=== PATIENT | female | born 1960 | race Caucasian/White ===

== ENCOUNTER 2016-09-05 10:04 | Inpatient (IN) | payer OTHER ==
[2016-09-05] VITALS (7 sets, daily range): BP systolic 108–139; BP diastolic 57–70; PULSE 55–77; RESP 12–21; TEMP 98–99.2; O2SAT 97–100
[~2016-09-05] VITALS: Ht 162.6 cm; Wt 50.0 kg
[2016-09-05] MEDS ORDERED: OMEP10CA PO (10:32)
[2016-09-05] MEDS ORDERED: SODIUM CHLOR 0.9% 1000 ML INJ 1,000 ML IV SCH (10:32)
--- NOTE | 2016-09-05 10:34 | PD ---
HPI Chief Complaint: GI Complaint Time Seen by Provider: 10:19 Travel History International Travel<30 days: No Contact w/Intl Traveler<30days: No Traveled to known affect area: No History of Present Illness HPI This is a 56-year-old female who presents to the emergency department with nausea vomiting and diarrhea that's been going on for 10 days. She's says she' s been having 5-6 loose stools per day with some intermittently formed stools. Her last bowel movement was immediately prior to arrival. She also yesterday started to have vomiting. This morning she was dry heaving and doesn't have anything left in her stomach. She denies any fevers or chills. She went to the [facility] where they told her she might have a heart problem because she is having some jaw pain that she thinks is related to her TMJ. She denies any fevers or chills. She has had abdominal cramping which she thinks is related to her vomiting. She says a lot of people at work had been sick with similar symptoms. She has a complicated abdominal history and when she was in her 30s had a bowel perforation during a laparoscopic surgery for endometriosis which went undiagnosed put her in a coma. She ended up with an ileostomy which has since been reversed. PFSH Past Medical History Medical other: Yes (vertigo) Reproductive: Yes (endometriosis ) Respiratory: Yes (lungs trice out in the past) ?: Not Past Surgical History Genitourinary Surgery: Yes (ileostomy and reversal, knicked bowel, mesh implant ) Social History Alcohol Use: No Tobacco Use: No Substance Use: No Allergies-Medications (Allergen,Severity, Reaction): Coded Allergies: Penicillin (Verified Allergy, Intermediate, itchy, 09/05/16) Reported Meds & Prescriptions Reported Meds & Active Scripts Active Reported Omeprazole 10 Mg Cap 10 Mg PO DAILY Review of Systems Except as stated in HPI: all other systems reviewed are Neg Physical Exam Narrative GENERAL:Well appearing, no acute distress SKIN: Focused skin assessment warm and dry. HEAD: Atraumatic. Normocephalic. EYES: Pupils equal and round. No injection or drainage. ENT: Dry mucous membranes. NECK: Trachea midline. CARDIOVASCULAR: Regular rate and rhythm. No murmur appreciated. RESPIRATORY: Clear to auscultation. Breath sounds equal bilaterally. GASTROINTESTINAL: Abdomen soft, tender to palpation in the lower abdomen with no rebound or guarding. Bowel sounds in all 4 quadrants. MUSCULOSKELETAL: No obvious deformities. NEUROLOGICAL: Awake and alert. No obvious cranial nerve deficits. Moving all extremities. PSYCHIATRIC: Appropriate mood and affect; insight and judgment normal. Data Data Last Documented VS Vital Signs Date Time Temp Pulse Resp B/P Pulse Ox O2 Delivery O2 Flow Rate FiO2 09/05/16 12:56 98.0 55 14 110/58 99 09/05/16 10:33 Room Air Orders Complete Blood Count With Diff (09/05/16 10:32) Comprehensive Metabolic Panel (09/05/16 10:32) Iv Access Insert/Monitor (09/05/16 10:32) Ecg Monitoring (09/05/16 10:32) Oximetry (09/05/16 10:32) Ondansetron Inj (Zofran Inj) (09/05/16 10:45) Sodium Chlor 0.9% 1000 Ml Inj (Ns 1000 M (09/05/16 10:32) Sodium Chloride 0.9% Flush (Ns Flush) (09/05/16 10:45) Electrocardiogram (09/05/16 10:32) Troponin I (09/05/16 10:32) Ct Abd/Pel W Iv Contrast(Rout) (09/05/16 ) Iohexol 350 Inj (Omnipaque 350 Inj) (09/05/16 12:31) Admit Order (Ed Use Only) (09/05/16 13:15) Labs Laboratory Tests Test 09/05/16 10:41 White Blood Count 10.5 TH/MM3 Red Blood Count 3.86 MIL/MM3 Hemoglobin 12.5 GM/DL Hematocrit 36.0 % Mean Corpuscular Volume 93.4 FL Mean Corpuscular Hemoglobin 32.5 PG Mean Corpuscular Hemoglobin 34.8 % Concent Red Cell Distribution Width 13.2 % Platelet Count 245 TH/MM3 Mean Platelet Volume 6.9 FL Neutrophils (%) (Auto) 77.5 % Lymphocytes (%) (Auto) 17.7 % Monocytes (%) (Auto) 4.3 % Eosinophils (%) (Auto) 0.1 % Basophils (%) (Auto) 0.4 % Neutrophils # (Auto) 8.1 TH/MM3 Lymphocytes # (Auto) 1.9 TH/MM3 Monocytes # (Auto) 0.5 TH/MM3 Eosinophils # (Auto) 0.0 TH/MM3 Basophils # (Auto) 0.0 TH/MM3 CBC Comment DIFF FINAL Differential Comment Sodium Level 143 MEQ/L Potassium Level 3.6 MEQ/L Chloride Level 106 MEQ/L Carbon Dioxide Level 27.8 MEQ/L Anion Gap 9 MEQ/L Blood Urea Nitrogen 19 MG/DL Creatinine 0.89 MG/DL Estimat Glomerular Filtration 66 ML/MIN Rate Random Glucose 118 MG/DL Calcium Level 8.9 MG/DL Total Bilirubin 0.4 MG/DL Aspartate Amino Transf 13 U/L (AST/SGOT) Alanine Aminotransferase 21 U/L (ALT/SGPT) Alkaline Phosphatase 58 U/L Troponin I LESS THAN 0.02 NG/ML Total Protein 7.4 GM/DL Albumin 4.1 GM/DL [facility] Medical Decision Making Medical Screen Exam Complete: Yes Emergency Medical Condition: Yes Interpretation(s) Afebrile, no tachycardia, normotensive No leukocytosis Electrolytes are reassuring Troponin is normal CT: Dilated loop of fluid-filled small bowel in the right lower quadrant proximal to anastomotic sutures suggesting focal small bowel obstruction Differential Diagnosis Small bowel obstruction, gastroenteritis, dehydration, colitis, appendicitis Narrative Course This is a 56-year-old female who presents to the emergency department with nausea, vomiting and loose stools as well as abdominal discomfort. She has had multiple abdominal surgeries in the past. She is placed on a monitor and an IV was established. Labs were obtained which were all reassuring. CT abdomen and pelvis demonstrates focal distention of the small bowel loop that her anastomosis concerning for possible obstruction. I spoke to Dr. Gardiner who was on-call for general surgery. Given the patient is not actively vomiting and is passing some stool it's unlikely that she has a complete obstruction. He agreed to defer nasogastric tube at this time and will see the patient later in consultation. Physician Communication Physician Communication Discussed with Dr. Gardiner and Dr. Salazar Diagnosis Primary Impression: Small bowel obstruction Admitting Information Admitting Physician Requests: Admit Brea Elmore MD Sep 05, 2016 10:34
[2016-09-05] MEDS ORDERED: SODIUM CHLORIDE 0.9% FLUSH 10 ML FLUSH IV FLUSH PRN ×2 (10:45→15:45)
[2016-09-05] MEDS ORDERED: ONDANSETRON HCL 4 MG/2 ML VIAL IVP ONE (10:45)
[2016-09-05 11:06] LABS: AUTOMATED NEUTROPHIL # 8.1 TH/MM3 (1.8-7.7); BASOPHIL % 0.4 % (0.0-2.0); EOSINOPHIL % 0.1 % (0.0-4.0); HEMO FLAGS DIFF FINAL; LYMPH % 17.7 % (9.0-44.0); LYMPHOCYTE # 1.9 TH/MM3 (1.0-4.8); MEAN CELL VOLUME 93.4 FL (80.0-100.0); MEAN CORPUSCULAR HEMOGLOBIN 32.5 PG (27.0-34.0); MEAN CORPUSCULAR HGB CONC 34.8 % (32.0-36.0); MONO % 4.3 % (0.0-8.0); NEUT % 77.5 % (16.0-70.0); PLATELET COUNT 245 TH/MM3 (150-450); RED BLOOD COUNT 3.86 MIL/MM3 (4.00-5.30); RED CELL DISTRIBUTION WIDTH 13.2 % (11.6-17.2); WHITE BLOOD COUNT 10.5 TH/MM3 (4.0-11.0)
[2016-09-05 11:22] LABS: ALT (GPT) 21 U/L (10-53); ANION GAP 9 MEQ/L (5-15); AST (GOT) 13 U/L (15-37); BICARBONATE 27.8 MEQ/L (21.0-32.0); BLOOD UREA NITROGEN 19 MG/DL (7-18); CHLORIDE 106 MEQ/L (98-107); GLOMERULAR FILTRATION RATE 66 ML/MIN (>89); POTASSIUM 3.6 MEQ/L (3.5-5.1); SODIUM (NA) 143 MEQ/L (136-145)
[2016-09-05 11:25] LABS: ALKALINE PHOSPHATASE 58 U/L (45-117); TOTAL BILIRUBIN ADULT 0.4 MG/DL (0.2-1.0)
[2016-09-05] MEDS ORDERED: IOHEXOL 350 MG/ML 10 ML VIAL (for RAD DIAG) IV ONE (12:31)
--- NOTE | 2016-09-05 13:09 | RADRPT ---
EXAM DATE/TIME: 09/05/2016 12:19 [place] COMPARISON: No previous studies available for comparison. INDICATIONS : Abdominal pain, nausea and vomiting for 8 days. IV CONTRAST: 94 cc Omnipaque 350 (iohexol) IV ORAL CONTRAST: No oral contrast ingested. RADIATION DOSE: 4.50 CTDIvol (mGy) MEDICAL HISTORY : Hernia, hiatal. Endometriosis SURGICAL HISTORY : Ileostomy & reversal. Mesh implant. ENCOUNTER: Initial ACUITY: 1 day PAIN SCALE: 3/10 LOCATION: Bilateral lower quadrant TECHNIQUE: Volumetric scanning of the abdomen and pelvis was performed. Using automated exposure control and ad justment of the mA and/or kV according to patient size, radiation dose was kept as low as reasonably achievable to obtain optimal diagnostic quality images. FINDINGS: There is evidence of a fluid-filled dilated loop of small bowel within the right lower quadrant immed iately proximal to what appears to be an anastomosis consistent with probable small bowel obstruction at the anastomosis. Clinical correlation is recommended. There is a calcification within the dilat ed loop of small bowel which may represent a gallstone. The liver is enlarged but demonstrates no focal mass or biliary ductal dilatation. The gallbladder i s normal in appearance. The spleen is normal. The pancreas is also normal. The adrenal glands are normal bilaterally. The kidneys enhance briskly and demonstrate no evidence of hydronephrosis or svitlana cified stone. There is a simple cyst within the right kidney measuring 7 mm. The urinary bladder is unremarkable. The uterus is unremarkable. Minimal ascites is noted within the pelvis. No lymphade nopathy is noted. The abdominal aorta demonstrates calcified atherosclerotic plaque but no aneurysma l dilatation. The inferior vena cava is normal. Scattered fibrotic scarring is noted within the tashia g bases. Degenerative changes are noted throughout the lumbar spine. CONCLUSION: 1. Dilated loop of fluid-filled small bowel within the right lower quadrant proximal to anastomotic sutures suggesting focal small bowel obstruction at the anastomosis. There is a calcification within the dilated fluid-filled loop suggestive of possible gallstone. 2. Minimal ascites within the pelvis. 3. Tiny right renal cyst measuring 7 mm. 4. Hepatomegaly. Bird Garcia MD on September 05, 2016 at 12:55 Board Certified Radiologist. This report was verified electronically.
--- NOTE | 2016-09-05 14:31 | EKG ---
Date Performed: 09/05/2016 Time Performed: 10:38:03 PTAGE: 56 years EKG: Sinus rhythm POSSIBLE RIGHT VENTRICULAR CONDUCTION DELAY BORDERLINE ECG INTERPRETATION BASED ON A DEFAULT AGE OF 40 YEARS NO PREVIOUS TRACING DOCTOR: Lobo Hill Interpretating Date/Time 09/05/2016 14:31:21
[2016-09-05] MEDS ORDERED: ONDANSETRON HCL 4 MG/2 ML VIAL IVP PRN (15:45)
[2016-09-05] MEDS ORDERED: NALOXONE HCL 0.4 MG/ML AMP IV PRN (15:45)
--- NOTE | 2016-09-05 15:46 | HHI.HP ---
[facility] Service [facility] Primary Care Physician [facility] Admission Diagnosis small bowel obstruction Diagnoses: Chief Complaint: Abdominal pain and emesis. Travel History International Travel<30 Days: No Contact w/Intl Traveler <30 Da: No Traveled to Known Affected Are: No History of Present Illness This is a 56-year-old female who had a past medical history involving multiple abdominal surgery including bowel perforation during a laparoscopic surgery for endometriosis in which she needed a ileostomy which was reversed who presented with abdominal pain and emesis. Patient stated that at 10 PM last night she had abdominal pain and emesis multiple times until 4 AM when it stop. She stated that it looked like it was food but it was dark in her house and at night so she couldn't really say. Deny any fevers or chills. She also stated that she had diarrhea for the past 8 days. Diarrhea described as loose but then becomes watery. She feels like this has worsened. At the moment she stated that abdominal pain and emesis has resolved. Review of Systems Constitutional: DENIES: Diaphoretic episodes, Fatigue, Fever, Weight gain, Weight loss, Chills, Dizziness, Change in appetite, Night Sweats Endocrine: DENIES: Abnorml menstrual pattern, Heat/cold intolerance, Polydipsia , Polyuria, Polyphagia Eyes: DENIES: Blurred vision, Diplopia, Eye inflammation, Eye pain, Vision loss , Photosensitivity, Double Vision Ears, nose, mouth, throat: DENIES: Tinnitus, Hearing loss, Vertigo, Nasal discharge, Oral lesions, Throat pain, Hoarseness, Ear Pain, Running Nose, Epistaxis, Sinus Pain, Toothache, Odynophagia Respiratory: DENIES: Apneas, Cough, Snoring, Wheezing, Hemoptysis, Sputum production, Shortness of breath Cardiovascular: DENIES: Chest pain, Palpitations, Syncope, Dyspnea on Exertion , PND, Lower Extremity Edema, Orthopnea, Claudication Gastrointestinal: COMPLAINS OF: Diarrhea, DENIES: Abdominal pain, Black stools , Bloody stools, Constipation, Nausea, Vomiting, Difficulty Swallowing, Anorexia Genitourinary: DENIES: Abnormal vaginal bleeding, Dysmenorrhea, Dyspareunia, Sexual dysfunction, Urinary frequency, Urinary incontinence, Urgency, Hematuria , Dysuria, Nocturia, Vaginal discharge Musculoskeletal: DENIES: Joint pain, Muscle aches, Stiffness, Joint Swelling, Back pain, Neck pain Integumentary: DENIES: Abnormal pigmentation, Pruritus, Rash, Nail changes, Breast masses, Breast skin changes, Nipple discharge Hematologic/lymphatic: DENIES: Bruising, Lymphadenopathy Immunologic/allergic: DENIES: Eczema, Urticaria Neurologic: DENIES: Abnormal gait, Headache, Localized weakness, Paresthesias, Seizures, Speech Problems, Tremor, Poor Balance Psychiatric: DENIES: Anxiety, Confusion, Mood changes, Depression, Hallucinations, Agitation, Suicidal Ideation, Homicidal Ideation, Delusions Past Family Social History Past Medical History History DVT Endometriosis Past Surgical History Exploratory laparotomy that resulted in bowel perforation status post ileostomy placement and takedown Hernia repair bunionectomy Reported Medications Reported Meds & Active Scripts Active Reported Omeprazole 10 Mg Cap 10 Mg PO DAILY Allergies: Coded Allergies: Penicillin (Verified Allergy, Intermediate, itchy, 09/05/16) Active Ordered Medications Current Medications Ondansetron HCl 4 mg 4 mg ONCE ONCE IVP Last administered on 09/05/16 10:40; Start 09/05/16 at 10:45; Stop 09/05/16 at 10:46; Status DC Sodium Chloride (NS 1000 ml Inj) 1,000 ml @ 1,000 mls/hr Q1H IV Last administered on 09/05/16 10:40; Start 09/05/16 at 10:32; Stop 09/05/16 at 11:31 ; Status DC Sodium Chloride (NS Flush) 2 ml UNSCH PRN IV FLUSH FLUSH AFTER USING IV ACCESS ; Start 09/05/16 at 10:45; Stop 09/05/16 at 15:40; Status DC Iohexol 94 ml 94 ml STK-MED ONCE IV Last administered on 09/05/16 12:31; Start 09/05/16 at 12:31; Stop 09/05/16 at 12:32; Status DC Sodium Chloride (NS 1000 ml Inj) 1,000 ml @ 125 mls/hr Q8H IV ; Start 09/05/16 at 16:00 Sodium Chloride (NS Flush) 2 ml UNSCH PRN IV FLUSH FLUSH AFTER USING IV ACCESS ; Start 09/05/16 at 15:45 Sodium Chloride (NS Flush) 2 ml BID IV FLUSH ; Start 09/05/16 at 21:00 Ondansetron HCl (Zofran Inj) 4 mg Q6H PRN IVP NAUSEA OR VOMITING; Start at 15:45 Naloxone HCl (Narcan Inj) 0.4 mg UNSCH PRN IV SEE LABEL COMMENTS; Start at 15:45 Family History Mother has a history of MS. Father has history of blood clots. Social History Denying tobacco illicit drug use. Drinks a couple beers at night. Physical Exam Vital Signs Vital Signs Date Time Temp Pulse Resp B/P Pulse Ox O2 Delivery O2 Flow Rate FiO2 09/05/16 14:50 69 16 108/70 98 09/05/16 12:56 98.0 55 14 110/58 99 09/05/16 10:33 100 Room Air 09/05/16 10:24 17 09/05/16 10:06 99.2 75 12 112/57 99 Physical Exam GENERAL: This is a well-nourished, well-developed patient, in no apparent distress. SKIN: No rashes, ecchymoses or lesions. Cool and dry. HEAD: Atraumatic. Normocephalic. No temporal or scalp tenderness. EYES: Pupils equal round and reactive. Extraocular motions intact. No scleral icterus. No injection or drainage. ENT: Nose without bleeding, purulent drainage or septal hematoma. Throat without erythema, tonsillar hypertrophy or exudate. Uvula midline. Airway patent. NECK: Trachea midline. No JVD or lymphadenopathy. Supple, nontender, no meningeal signs. CARDIOVASCULAR: Regular rate and rhythm without murmurs, gallops, or rubs. RESPIRATORY: Clear to auscultation. Breath sounds equal bilaterally. No wheezes , rales, or rhonchi. GASTROINTESTINAL: Abdomen soft, non-tender, nondistended. No hepato-splenomegaly , or palpable masses. No guarding. MUSCULOSKELETAL: Extremities without clubbing, cyanosis, or edema. No joint tenderness, effusion, or edema noted. No calf tenderness. Negative Homans sign bilaterally. NEUROLOGICAL: Awake and alert. Cranial nerves II through XII intact. Motor and sensory grossly within normal limits. Five out of 5 muscle strength in all muscle groups. Normal speech. Laboratory Laboratory Tests Test 09/05/16 10:41 White Blood Count 10.5 Red Blood Count 3.86 Hemoglobin 12.5 Hematocrit 36.0 Mean Corpuscular Volume 93.4 Mean Corpuscular Hemoglobin 32.5 Mean Corpuscular Hemoglobin 34.8 Concent Red Cell Distribution Width 13.2 Platelet Count 245 Mean Platelet Volume 6.9 Neutrophils (%) (Auto) 77.5 Lymphocytes (%) (Auto) 17.7 Monocytes (%) (Auto) 4.3 Eosinophils (%) (Auto) 0.1 Basophils (%) (Auto) 0.4 Neutrophils # (Auto) 8.1 Lymphocytes # (Auto) 1.9 Monocytes # (Auto) 0.5 Eosinophils # (Auto) 0.0 Basophils # (Auto) 0.0 CBC Comment DIFF FINAL Differential Comment Sodium Level 143 Potassium Level 3.6 Chloride Level 106 Carbon Dioxide Level 27.8 Anion Gap 9 Blood Urea Nitrogen 19 Creatinine 0.89 Estimat Glomerular Filtration 66 Rate Random Glucose 118 Calcium Level 8.9 Total Bilirubin 0.4 Aspartate Amino Transf 13 (AST/SGOT) Alanine Aminotransferase 21 (ALT/SGPT) Alkaline Phosphatase 58 Troponin I LESS THAN 0.02 Total Protein 7.4 Albumin 4.1 Result Diagram: 09/05/16 1041 09/05/16 1041 Assessment and Plan Assessment and Plan 56-year-old female with past medical history of multiple abdominal surgeries who presented with abdominal pain and emesis Small bowel obstruction -CT scan shows a focal small bowel obstruction. -General surgeon was consulted by ED physician in which at the moment he does not recommend NG tube placement. -Continue with supportive care with IV fluids and anti-emetics pending general surgeons consultation. Diarrhea -Will get stool studies. Maybe secondary to small bowel obstruction. -We'll start probiotics. DVT prophylaxis -SCDs. Code Status full Discussed Condition With patient Physician Certification 2 Midnight Certification Type: Admission for Inpatient Services Order for Inpatient Services The services are ordered in accordance with Medicare regulations or non- Medicare payer requirements, as applicable. In the case of services not specified as inpatient-only, they are appropriately provided as inpatient services in accordance with the 2-midnight benchmark. Estimated LOS (days): 2 2 days is the estimated time the patient will need to remain in the hospital, assuming treatment plan goals are met and no additional complications. Post-Hospital Plan: Mikki Ibarra MD Sep 05, 2016 15:45
[2016-09-05] MEDS: SODIUM CHLOR 0.9% 1000 ML INJ 1,000 ML IV SCH (15:54)
[2016-09-05] MEDS: SODIUM CHLORIDE 0.9% FLUSH 10 ML FLUSH IV FLUSH SCH (19:40)
[2016-09-05] MEDS: LACTOBACILLUS ACIDOPHILUS TAB PO SCH (19:58)
[2016-09-06] VITALS: BP 111/56; PULSE 53; RESP 19; TEMP 98; O2SAT 95
[2016-09-06] MEDS: SODIUM CHLOR 0.9% 1000 ML INJ 1,000 ML IV SCH ×2 (00:34→08:00)
[2016-09-06 04:00] VITALS: BP 134/81; PULSE 74; RESP 19; TEMP 97.9; O2SAT 100
--- NOTE | 2016-09-06 06:31 | MB ---
cc: SHAYYCINDY DATE OF EVALUATION 09/05/[address] Mikki Salazar REASON FOR CONSULTATION Small bowel obstruction. HISTORY OF PRESENT ILLNESS The patient is a 56-year-old female with a complex past surgical history who presented to [facility] with nausea, vomiting and abdominal pain. The patient underwent surgery for endometriosis over 10 years ago which was complicated by bowel injury which required multiple abdominal surgeries, ileostomy, ileostomy reversal, mesh placement for hernia as well as mesh removal. The patient has since that time experienced recurrent partial bowel obstruction-type symptoms that are usually treated outside hospital admission. These are similar to this episode when she has onset of crampy abdominal pain, sometimes related to large bulk fiber foods like vegetables and nuts. The patient denies any previous surgery or every admission with NG tube. The patient states this episode is worse than her previous episodes which prompted the hospital visit. The patient was found on imaging CT scan of the pelvis to have a dilated loop of fluid-filled small bowel in the right lower quadrant proximal to the anastomotic strictures concerning for a possible partial obstruction. The patient laboratory values are within normal limits and is felt to have a benign abdominal exam. The patient was admitted for observation and for abdominal surgery consultation. The patient states over the last several hours she has had bowel movements, passed gas and resolution of her pain. REVIEW OF SYSTEMS A 12-point review of systems was done with the patient and is negative except for the pertinent positives mentioned above in the History of Present Illness. PAST MEDICAL HISTORY 1. History of DVT. 2. Endometriosis. PAST SURGICAL HISTORY 1. Exploratory laparotomy, ileostomy placement. 2. Ileostomy takedown and hernia repair. 3. Mesh removal. 4. Bunionectomy. ALLERGIES PENICILLIN MEDICATIONS Omeprazole. FAMILY HISTORY Noncontributory. SOCIAL HISTORY History of tobacco use. Currently does not use tobacco, occasionally drinks alcohol. Denies illicit drug use. Works as a radio DJ. PHYSICAL EXAMINATION VITAL SIGNS: Temperature 98.0 degrees, pulse 55, respiratory rate 14, blood pressure 110/58. GENERAL: The patient is a thin female in no acute distress. HEENT: Head is normocephalic, atraumatic. Pupils round, reactive to accommodation and to light. Sclerae anicteric. Mucous membranes are moist. NECK: Supple with no JVD. SKIN: Warm, dry, intact. LUNGS: Clear to auscultation bilaterally. Nonlabored breathing pattern. HEART: Regular rate and rhythm. No murmurs. ABDOMEN: Soft, nondistended. Normal bowel sounds. Multiple surgical scars. No hernias. No rebound tenderness. No peritonitis. BACK: No CVA tenderness. EXTREMITIES: No clubbing, cyanosis or edema. NEUROLOGIC EXAM: The patient is awake, alert appropriate and oriented x 4, moving all extremities equally, nonfocally. Cranial nerves II-XII grossly intact. LABORATORY VALUES Within normal limits. Unremarkable. ASSESSMENT AND PLAN The patient is a 56-year-old female with recurrent low-grade partial bowel obstruction, possibly related to previous surgery with abdominal adhesions or less likely/possibly area of anastomosis or partial stricture of the anastomosis. I did discuss these findings with her and her diagnosis. In the short-term since the patient seems to have resolving bowel obstruction, recommend advance to clear liquid diet and if the patient is able tolerate a full liquid diet, will discharge home in the next 24 hours. Long-term I discussed the options with the patient including a diet with no bulk fiber or puree any bulk fiber items. She understands the rationale for this and has agreed to try this diet to limit these episodes and obstruction. Also discussed surgical options with the patient, emergent as well as elective. The patient would like to avoid surgical attention but states she would consider it if nonoperative therapy fails. We will follow the patient. Thank you very much for this consultation. We will advance the patient to a clear liquid diet. MD EULALIO Linda/DARIA /10:15 PM /6:16 AM
[2016-09-06 07:27] VITALS: BP 110/64; PULSE 60; RESP 16; TEMP 98.3; O2SAT 99
[2016-09-06] MEDS: LACTOBACILLUS ACIDOPHILUS TAB PO SCH (08:48)
[2016-09-06] MEDS: SODIUM CHLORIDE 0.9% FLUSH 10 ML FLUSH IV FLUSH SCH (09:00)
--- NOTE | 2016-09-06 09:38 | HHI.DCPOC ---
Discharge Care Plan Diagnosis: (1) Small bowel obstruction Goals to Promote Your Health * To prevent worsening of your condition and complications * To maintain your health at the optimal level Directions to Meet Your Goals Take your medications as prescribed Follow your dietary instruction Follow activity as directed Keep your appointments as scheduled Take your immunizations and boosters as scheduled If your symptoms worsen call your PCP, if no PCP go to Urgent Care Center or Emergency Room Smoking is Dangerous to Your Health. Avoid second hand smoke Call the 24-hour hour crisis hotline for domestic abuse at Mikki Salazar MD Sep 06, 2016 09:38
--- NOTE | 2016-09-06 09:41 | HHI.DS ---
Discharge Summary Admission Date Sep 05, 2016 at 13:16 Discharge Date: Sep 06, 2016 Admitting Diagnosis small bowel obstruction (1) Small bowel obstruction ICD Code: K56.69 Diagnosis: Principal Procedures none Brief History - From Admission This is a 56-year-old female who had a past medical history involving multiple abdominal surgery including bowel perforation during a laparoscopic surgery for endometriosis in which she needed a ileostomy which was reversed who presented with abdominal pain and emesis. Patient stated that at 10 PM last night she had abdominal pain and emesis multiple times until 4 AM when it stop. She stated that it looked like it was food but it was dark in her house and at night so she couldn't really say. Deny any fevers or chills. She also stated that she had diarrhea for the past 8 days. Diarrhea described as loose but then becomes watery. She feels like this has worsened. At the moment she stated that abdominal pain and emesis has resolved. CBC/BMP: 09/05/16 1041 09/05/16 1041 Significant Findings Laboratory Tests Test 09/05/16 10:41 Red Blood Count 3.86 MIL/MM3 (4.00-5.30) Mean Platelet Volume 6.9 FL (7.0-11.0) Neutrophils (%) (Auto) 77.5 % (16.0-70.0) Neutrophils # (Auto) 8.1 TH/MM3 (1.8-7.7) Blood Urea Nitrogen 19 MG/DL (7-18) Estimat Glomerular Filtration 66 ML/MIN (>89) Rate Random Glucose 118 MG/DL (74-106) Aspartate Amino Transf 13 U/L (15-37) (AST/SGOT) Troponin I LESS THAN 0.02 NG/ML (0.02-0.05) Imaging Last Impressions Abdomen/Pelvis CT 09/05/16 0000 Signed Impressions: Service Date/Time: Monday, September 05, 2016 12:19 - CONCLUSION: 1. Dilated loop of fluid-filled small bowel within the right lower quadrant proximal to anastomotic sutures suggesting focal small bowel obstruction at the anastomosis. There is a calcification within the dilated fluid-filled loop suggestive of possible gallstone. 2. Minimal ascites within the pelvis. 3. Tiny right renal cyst measuring 7 mm. 4. Hepatomegaly. Bird Garcia MD PE at Discharge gen NAD CV RRR. no r/m/g Resp CTA B/L abd soft NDNT. no peritoneal signs. normoactive BS. Pt update on day of discharge f/u for SBO denied any N/V or abdominal pain. patient stated she is tolerating diet and asking to go home. dw her over the phone. Hospital Course 56-year-old female with past medical history of multiple abdominal surgeries who presented with abdominal pain and emesis Small bowel obstruction -CT scan shows a focal small bowel obstruction. -General surgeon was consulted by ED physician in which at the moment he does not recommend NG tube placement. -patient given supportive care with IV fluids and anti-emetics. -GS saw patient and recommend to avoid bulking agent. -patient pain resolved and tolerated diet so was discharge home. Diarrhea -no diarrhea noted in hospital so could not obtained stool studies. -maybe due to SBO Pt Condition on Discharge: Good Discharge Disposition: Discharge Home Discharge Time: <= 30 minutes Discharge Instructions DIET: Follow Instructions for: As Tolerated, No Restrictions, Low Fiber Diet Additional Diet Instructions: no bulk fiber or puree any bulk fiber item Activities you can perform: Regular-No Restrictions Follow up Referrals: PCP Follow-up - 1 Week Continued Medications: Omeprazole (Omeprazole) 10 Mg Cap 10 MG PO DAILY #30 Ref 0 Mikki Agudelo MD Sep 06, 2016 09:41
== END 2016-09-06 14:55 | disposition home or self-care (01) | DRG 390 ==
LOC: NEPD 10:04 → NEDA 13:16 → NEPHCDU 18:31
PROVIDERS: ADMIT Family Medicine; ATTEND Family Medicine
DX: K56.69 Other intestinal obstruction (principal); Z86.718 Personal history of other venous thrombosis and embolism; Z87.891 Personal history of nicotine dependence
CPT/HCPCS: 74177; 80053; 84484; 85025; 93005; 96361; 96374; J2405; J7030; Q9967